=== PATIENT | male | born 1930 | race Caucasian/White ===

== ENCOUNTER → 2017-05-17 | Outpatient (CLI) | payer OTHER ==
[~2017-05-17] MED LIST: AEROECLIPSE1 EACH MC; ALBUTEROL2.5 MG/31 INH; APAP500 PO; APAP650 PO; ASPIR 8181 MG PO; AUGMENTIN 875875 MG PO; B12INJ IM; COLACE 100 MG100 MG PO; DOXYCYCLIN25 MG/5 ML PO; FINASTERIDE5 MG PO; FISH OIL 1,001000 M2 PO; FLAGYL500 MG PO; HYDROCHLOROTHIA25 M1 PO; IBUPROFEN 200200 M1 PO; LASIX; LASIX 40 MG TAB40 M1 PO; LEVAQUIN 500 M500 MG PO; MEDROLDOSEPACK PO; MIRALAX17 GM PO; MULTI VITAMIN1 EACH PO; OMEPRAZOLE40 MG PO; POTASSIUM20; STOOL SOFT-STI1 EACH PO; TIMOLOL MA0.25 %/5 M OP; TYLENOL PM EX-1 EACH PO
== END ==
LOC: M.ULTRA 08:49
DX: I65.23 Occlusion and stenosis of bilateral carotid arteries (principal); I70.8 Atherosclerosis of other arteries; I77.1 Stricture of artery

== ENCOUNTER 2019-04-03 06:02 | Inpatient (IN) | payer OTHER ==
[~2019-04-03] VITALS: Ht 170.2 cm; Wt 90.7 kg
[2019-04-03 06:14] VITALS: BP 134/65
[2019-04-03] MEDS ORDERED: HYDROCHLOROTHIA25 M2 PO (06:22)
[2019-04-03] MEDS ORDERED: METFORMIN HCL500 M3 PO (06:22)
[2019-04-03] MEDS ORDERED: TYLENOL PM (06:23)
[2019-04-03] MEDS ORDERED: STOOL SOFTENER (06:23)
[2019-04-03] MEDS ORDERED: FIBER CAPS (06:23)
[2019-04-03] MEDS ORDERED: LATANOPROST 0.2.5 ML OPHTHALMIC (06:24)
[2019-04-03 06:36] LABS: ABSOLUTE EOSINOPHILS 0.1 thou/uL (0.0-0.7); ABSOLUTE LYMPHOCYTES 0.7 thou/uL (0.8-5.3); ABSOLUTE MONOCYTES 0.5 thou/uL (0.0-1.2); ABSOLUTE NEUTROPHILS 5.9 thou/uL (1.6-8.1); BASOPHILS 0.5 %; EOSINOPHILS 1.2 %; HEMATOCRIT 45.4 % (42.0-52.0); HEMOGLOBIN 15.9 gm/dL (14.0-18.0); LYMPHOCYTES 9.3 %; MCH 33.4 pg (26.0-34.0); MCHC 35.1 g/dL (28.0-37.0); MCV 95.4 fL (80.0-100.0); MONOCYTES 7.4 %; MPV 7.8 fl. (7.2-11.1); NUCLEATED RBCS 0 /100WBC; PLATELET COUNT* 188 thou/uL (150-400); POLYS 81.6 %; RBC 4.76 mil/uL (4.50-6.00); RDW-CV 13.7 % (10.5-14.5); WBC 7.2 thou/uL (4.0-11.0)
[2019-04-03 06:45] LABS: CALCIUM 8.3 mg/dL (8.5-10.1); CREATININE 0.8 mg/dL (0.6-1.3); POTASSIUM 3.3 mmol/L (3.5-5.1)
[2019-04-03 06:56] LABS: ALBUMIN 3.7 g/dL (3.4-5.0); TOTAL BILIRUBIN 0.7 mg/dL (<0.1-1.0); TOTAL PROTEIN 7.4 g/dL (6.4-8.2)
[2019-04-03 12:14] VITALS: BP 143/70
[2019-04-03 13:00] VITALS: BP 113/57
[2019-04-03 16:00] VITALS: BP 117/70
--- NOTE | 2019-04-03 16:41 | EKG ---
[place] [address] ELECTROCARDIOGRAM REPORT Name: LANIE BILLINGSLEY Room: [address] ADM IN ..#: [id number] Admission: 04/03/19 Attend Phys: Lanie Goss, Discharge: Date of : 34 Date of Service: 04/03/1915 Report #: [id number] THIS REPORT FOR: //name// [facility] ED Test Date: 2019-04-03 Test Time: 06:15:17 Pat Name: LANIE BILLINGSLEY Department: Room: [facility] Gender: M Electrotyper: [place] : 1930 Requested By: Sarwat Alvarez Order Number: [id number] MD: Guzman Ratliff Measurements Intervals [place] Rate: 101 P: -42 [place]: 233 QRS: 35 QRSD: 101 T: 17 QT: 337 QTc: 437 Interpretive Statements Sinus tachycardia Atrial premature complex Prolonged [place] interval Abnormal R-wave progression, late transition Inferior infarct, old Baseline wander in lead(s) V2 Compared to ECG 07/16/2014 20:59:55 Atrial premature complex(es) now present Sinus rhythm no longer present Myocardial infarct finding still present Electronically Signed On 04-03-2019 16:40:29 COSMETICIAN APPRENTICE by Guzman Ratliff [email or web address] <ELECTRONICALLY SIGNED> By: Guzman Ratliff MD, [facility] 04/03/19 1640 4 4 Guzman Ratliff MD, [facility] /EPI
[2019-04-03 20:00] VITALS: BP 131/59
[2019-04-04 05:15] LABS: HEMATOCRIT 39.5 % (42.0-52.0); MCH 33.1 pg (26.0-34.0); MCHC 34.6 g/dL (28.0-37.0); MCV 95.7 fL (80.0-100.0); MPV 7.4 fl. (7.2-11.1); RBC 4.13 mil/uL (4.50-6.00); RDW-CV 13.6 % (10.5-14.5); WBC 4.1 thou/uL (4.0-11.0)
[2019-04-04 05:31] LABS: HEMOGLOBIN 13.7 gm/dL (14.0-18.0)
[2019-04-04 05:46] LABS: ALBUMIN 2.9 g/dL (3.4-5.0); CALCIUM 7.4 mg/dL (8.5-10.1); CREATININE 0.6 mg/dL (0.6-1.3); MAGNESIUM 1.5 mg/dL (1.8-2.4); PHOSPHORUS* 1.6 mg/dL (2.5-4.9); POTASSIUM 3.8 mmol/L (3.5-5.1); TOTAL BILIRUBIN 0.4 mg/dL (<0.1-1.0); TOTAL PROTEIN 6.1 g/dL (6.4-8.2)
[2019-04-04 08:00] VITALS: BP 137/62
[2019-04-04 16:00] VITALS: BP 158/61
[2019-04-04 20:30] VITALS: BP 153/64
[2019-04-05 03:34] LABS: ABSOLUTE EOSINOPHILS 0.2 thou/uL (0.0-0.7); ABSOLUTE MONOCYTES 0.4 thou/uL (0.0-1.2); BASOPHILS 0.7 %; EOSINOPHILS 6.4 %; HEMATOCRIT 36.2 % (42.0-52.0); HEMOGLOBIN 12.6 gm/dL (14.0-18.0); LYMPHOCYTES 28.3 %; MCH 33.3 pg (26.0-34.0); MCHC 34.8 g/dL (28.0-37.0); MCV 95.8 fL (80.0-100.0); MONOCYTES 11.4 %; MPV 7.6 fl. (7.2-11.1); NUCLEATED RBCS 0 /100WBC; PLATELET COUNT* 134 thou/uL (150-400); POLYS 53.2 %; RBC 3.78 mil/uL (4.50-6.00); RDW-CV 13.6 % (10.5-14.5); WBC 3.7 thou/uL (4.0-11.0)
[2019-04-05 03:49] LABS: CALCIUM 7.5 mg/dL (8.5-10.1); CREATININE 0.6 mg/dL (0.6-1.3); PHOSPHORUS* 2.1 mg/dL (2.5-4.9); POTASSIUM 3.4 mmol/L (3.5-5.1)
[2019-04-05 08:20] VITALS: BP 158/71
[2019-04-05 11:59] VITALS: BP 158/71
== END 2019-04-05 15:12 | disposition home or self-care (01) | DRG 394 ==
LOC: M.ERS 06:02 → M.3W 08:21 → M.TBA-ER 08:21 → M.3W 12:28
PROVIDERS: Emergency Medicine; Internal Medicine; ADMIT Internal Medicine
DX: K55.9 Vascular disorder of intestine, unspecified (principal); K56.609 Unspecified intestinal obstruction, unspecified as to partial versus complete obstruction; E87.2 Acidosis; I50.22 Chronic systolic (congestive) heart failure; R65.10 Systemic inflammatory response syndrome (SIRS) of non-infectious origin without acute organ dysfunction; E87.6 Hypokalemia; N40.0 Benign prostatic hyperplasia without lower urinary tract symptoms; E66.9 Obesity, unspecified; E86.9 Volume depletion, unspecified; M10.9 Gout, unspecified; M19.90 Unspecified osteoarthritis, unspecified site; R19.7 Diarrhea, unspecified; E11.9 Type 2 diabetes mellitus without complications; M48.00 Spinal stenosis, site unspecified; Z90.49 Acquired absence of other specified parts of digestive tract; Z98.1 Arthrodesis status; Z79.84 Long term (current) use of oral hypoglycemic drugs; Z88.5 Allergy status to narcotic agent; Z88.0 Allergy status to penicillin; Z88.8 Allergy status to other drugs, medicaments and biological substances; Z68.31 Body mass index [BMI] 31.0-31.9, adult

== ENCOUNTER → 2019-11-05 | Outpatient (CLI) | payer OTHER ==
[~2019-11-05] MED LIST changes: +FIBER CAPS; +HYDROCHLOROTHIA25 M2 PO; +LATANOPROST 0.2.5 ML OPHTHALMIC; +METFORMIN HCL500 M3 PO; +STOOL SOFTENER; +TYLENOL PM
== END ==
LOC: M.RAD 10:35
PROVIDERS: ATTEND Nurse Practitioner Family
DX: M19.032 Primary osteoarthritis, left wrist (principal)